=== PATIENT | female | born 1960 | race Caucasian/White ===

== ENCOUNTER 2016-05-06 17:54 | Emergency (ER) | payer SELFPAY | END 2016-05-06 17:56 | disposition left against medical advice (07) | LOC: SED 17:54 | DX: Z53.21 Procedure and treatment not carried out due to patient leaving prior to being seen by health care provider (principal) ==

== ENCOUNTER 2016-05-06 19:26 | Emergency (ER) | payer MEDICARE ==
[~2016-05-06] VITALS: Ht 162.6 cm; Wt 68.2 kg
[2016-05-06 19:28] VITALS: BP 154/89; PULSE 116; RESP 16; O2SAT 96
[2016-05-06 20:08] LABS: BASOPHILS % (AUTO) 0.5 % (0-3); EOSINOPHILS % (AUTO) 2.1 % (0-5); Mean Corpuscular Hemoglobin 28.5 pg (27.0-35.0); Mean Corpuscular Volume 84.7 fL (81-100); NEUTROPHILS % (AUTO) 53.4 % (40-74); Platelet Count 290 bil/L (150-400)
--- NOTE | 2016-05-06 20:24 | ED.REPORT ---
HPI-Psychiatric Illness Date of Service May 06, 2016 ED Provider: Klaudia Voss MD Patient is a 55 year old female who presents to the ED with bizarre behavior of unknown onset, stating that her head and feet are "shrinking and dissolving". Patient states that over the past 3 years she has noticed that her "feet are shrinking", specifically by "5 inches". She states that her head has also shrunk , with her hair and ears in the process of "falling out". The patient states that her "blood isn't running well", which she noticed a year ago. When asked why she decided to seek care today for these complaint she states "I just told you, my head is shrinking and my blood doesn't run". She states that she must be "too old to be on this earth". Patient denies experiencing any pain. The patient denies a psychiatric diagnosis and states that she does not take any medications. She denies a history of hypertension or diabetes mellitus. Patent denies suicidal ideations, homicidal ideations, auditory hallucinations, or visual hallucinations. The presented to the ED around 6pm this evening and left after she started hearing voices. After the initial evaluation, a man in the ED lobby stated that he is with the patient. This individual is a road driver, who states that the patient pays him a large amount of money to drive her around. He knows the patient well, to the extent that he is familiar with her and has been inside her house previously. The patient is from [place] and he often takes her to different hospitals, typically [facility]. Today [facility] had a long wait. They also drove to [facility] but did not go inside. Nursing Notes Stated Complaint: MENTAL HEALTH Chief Complaint: General Complaint Nursing Notes Reviewed: Yes Allergies: Coded Allergies: No Known Allergies (Unverified , 05/06/16) No Active Prescriptions or Reported Meds General Time Seen by MD: 19:36 Chief Complaint Bizarre behavior Hx Obtained From: Patient Arrived By: Walk-in Onset Occurred: Onset unknown Symptom Duration: Since onset Risk-Psychiatric Illness Suicide Risk Stratification RF Statements: Risk factors N/A Past Medical History Past Medical History breast cancer per patient Denies: Diabetes mellitus, Hypertension Past Surgical History mastectomy per patient Social History Other Social History: Good social support, , Local resident Ambulatory Status Independent Unable to Obtain History Past medical history, Past surgical history Unable to Obtain Due to: Patient is obviously psychotic and is unable to provide accurate history Review of Systems Review of Systems Note: + reports blood is moving slowly, head and feet are shrinking Unable to Obtain ROS Mental status (limited by) Constitutional: Denies: Chills, Fever Psychiatric: Denies: Hallucinations, auditory, Hallucinations, visual, Homicidal ideation, Suicidal ideation Physical Exam Initial Vital Signs Vital Signs (First) Date Time Temp Pulse Resp B/P Pulse Ox O2 Delivery O2 Flow Rate FiO2 05/06/16 19:28 36.7 116 16 154/89 96 Room Air Initial VS: Reviewed Head / Eyes: Atraumatic, Normocephalic, PERRL ENT: Mucous membranes moist, Conjunctiva normal, No scleral icterus Neck: Supple, Non-tender, Full range of motion Respiratory: Breath sounds normal, Clear to auscultation, No respiratory distress Cardiovascular: Heart sounds normal Abdomen / GI: Soft, Non-tender Extremities: Vascular intact, Neuro intact, No swelling, No tenderness Skin: Warm, Dry, No cyanosis General/Constitutional: Awake, Alert, No acute distress Neurologic: Speech NL, No motor deficits, No sensory deficits, CN II - XII intact Psychiatric: Not suicidal, Not homicidal Abnormal Mood/Affect: Positive: Pressured speech appears to be responding to internal stimuli obivous delusions Interpretation & Diagnostics Lab Results Interpretation Result Diagram: 05/06/16195405/06/161954 Test 05/06/16 19:55 White Blood Count 8.5th/mm3 (3.8-10.1) Red Blood Count 4.70mil/mm3 (3.90-5.20) Hemoglobin 13.4g/dL (12.0-15.6) Hematocrit 39.8% (35.0-46.0) Mean Corpuscular Volume 84.7fL (81-100) Mean Corpuscular Hemoglobin 28.5pg (27.0-35.0) Mean Corpuscular Hemoglobin Concent 33.7% (32.0-37.0) Red Cell Distribution Width 12.7% (12.3-15.4) Platelet Count 290bil/L (150-400) Neutrophils (%) (Auto) 53.4% (40-74) Lymphocytes (%) (Auto) 35.8% (14-46) Monocytes (%) (Auto) 8.0% (4-12) Eosinophils (%) (Auto) 2.1% (0-5) Basophils (%) (Auto) 0.5% (0-3) Sodium Level 142mEq/L (134-144) Potassium Level 4.3mEq/L (3.5-5.2) Chloride Level 102mEq/L (97-108) Carbon Dioxide Level 26mmol/L (18-29) Blood Urea Nitrogen 16mg/dL (6-24) Creatinine 0.55mg/dL (0.57-1.00) Estimat Glomerular Filtration Rate 164mL/min (>59) Glucose Level 103mg/dL (60-99) Calcium Level 9.5mg/dL (8.5-10.1) Total Bilirubin 0.2mg/dL (0.0-1.2) Aspartate Amino Transf (AST/SGOT) 19U/L (0-50) Alanine Aminotransferase (ALT/SGPT) 23U/L (0-32) Alkaline Phosphatase 91U/L (25-150) Total Protein 7.4g/dL (6.4-8.4) Albumin 4.6g/dL (3.4-5.0) Thyroid Stimulating Hormone (TSH) 3.110uIU/mL (0.450-4.500) Hold Huitron Top Tube Received (Received) Alcohols < 10mg/dL (0-10) CT Head Interpretation IMPRESSION: No acute intracranial disease process. Dictated by: Angie Siddiqui MD, PhD on 05/06/2016 at 20:45 Approved by: Angie Siddiqui MD, PhD on 05/06/2016 at 20:46 Study: Head CT no contrast Interpretation / Wet Read by: Interpret - Radiologist Re-Eval/Medical Decision Med Decision/Clinical Course 55-year-old female who has known psychiatric disorder here stating that her feet are dissolving, her head is shrinking, and her blood stopped flowing. Differential diagnosis includes but is not limited to intracranial abnormality versus electrolyte abnormality versus psychosis versus other lab abnormality. CBC, CMP, and CT head are all unremarkable. Patient was brought in by her regular telecommunications cable jointer, who knows her well, and states that this is her baseline. Patient was evaluated by psych social worker who agrees that patient is not gravely disabled at this time. She is not suicidal or homicidal. This appears to be her baseline. She is well kempt, and has a at home. She is amenable to discharge at this time. She has been given very strict return precautions. Re-Evaluation/Progress : Time of Eval: 21:38 Re-Evaluation/Progress Note: Rechecked the patient, who was informed that her labs and CT scan was normal. Patient understands and agrees with the plan to be discharged home. Discharge instructions and follow-up discussed. All questions were addressed. Return to the ED warnings given. Consultation #1: Consulted With: heating and ventilating worker Call Returned at: 21:00 Note: Spoke with the ED STEWARDESS SUPERVISOR, who has evaluated the patient. She appears to bepleasantly psychotic. She has a personal road driver which she has been paying to drive around. He has been in her house before and knows her well. She was driven around to several hospital tonight but did not go in. She typically goes to [facility], but their wait was too long tonight. Consultation #2: Call Returned at: 21:30 Note: STEWARDESS SUPERVISOR was unable to get ahold of the patient's . Spoke with the road driver extensively, confirmed that he knows her well. She will be discharged to return to her home. Counseled Regarding: Diagnosis, Lab results, Need for follow-up, When/why to return to ED Discharge & Departure Impression: Primary Impression: Psychosis Psychosis type: unspecified psychosis type Qualified Code: F29 - Unspecified psychosis not due to a substance or known physiological condition )( Condition at Discharge: No danger to self, No danger to others, No suicidal ideation, No homicidal ideation Disposition: Home Discharge Condition All VS Reviewed: Yes Condition: Stable Additional Instructions: Your lab work today was normal. It does not appear that you are dissolving and the blood appears to be running through your veins. The CT scan of your head was normal. It does not appear that your head is shrinking. Follow-up with your doctor next week. Return to the Emergency Department if you any other new or concerning symptoms. Your blood pressure was elevated in the Emergency Department today. You should follow-up with your primary care physician about your blood pressure, as you may need to be started on blood pressure medication. Referrals: [facility] Scribe Attestation Portions of this note were transcribed by Glory Gibson. I, Dr. Voss personally performed the history, physical exam and medical decision-making; I reviewed and confirmed the accuracy of the information in the transcribed note. Signed by: Scott Mathur, 05/06/2016 2143 Klaudia Voss MD May 06, 2016 20:24 Glory Gibson May 06, 2016 20:30
--- NOTE | 2016-05-06 20:48 | DRSVH ---
PROCEDURE: CT BRAIN WITHOUT CONTRAST ([id number]) INDICATIONS: new onset psychosis TECHNIQUE: Noncontrast 4.5 mm thick angled axial sections acquired from the foramen magnum to the vertex, with c oronal reformats. COMPARISON: None. FINDINGS: Image quality: Excellent. CSF spaces: Basal cisterns are patent. No extra-axial fluid collections. Ventricles are normal in size and shape. Brain: No midline shift. No intracranial masses or hemorrhage. Valente-white matter interface is norm al. Skull and face: Calvarium and visualized facial bones are intact, without suspicious lesions. Sinuses: Visualized sinuses and mastoids are clear. IMPRESSION: No acute intracranial disease process. Dictated by: Angie Siddiqui MD, PhD on 05/06/2016 at 20:45 Approved by: Angie Siddiqui MD, PhD on 05/06/2016 at 20:46
[2016-05-06 21:53] VITALS: BP 161/91; PULSE 111; RESP 18; O2SAT 96
== END 2016-05-06 21:56 | disposition home or self-care (01) ==
LOC: SED 19:26
DX: F29 Unspecified psychosis not due to a substance or known physiological condition (principal); Z85.3 Personal history of malignant neoplasm of breast
CPT/HCPCS: 36415; 70450; 80053; 82075; 84443; 85025; 99284; G0480

== ENCOUNTER 2016-09-01 11:12 | Emergency (ER) | payer MEDICARE ==
[~2016-09-01] VITALS: Ht 162.6 cm; Wt 59.1 kg
[2016-09-01 11:18] VITALS: BP 150/95; PULSE 104; RESP 14
--- NOTE | 2016-09-01 11:37 | ED.REPORT ---
HPI-Extremity Problem Upper Date of Service Sep 01, 2016 ED Provider: History of Present Illness: Hit left hand on shopping cart on Sunday at [employer]. Left hand dominant. Up to date on tdap. Primary care is [facility] in [place]. Has not use anything on hand Nursing Notes Stated Complaint: SORE LEFT HAND Chief Complaint: Extremity Trauma Nursing Notes Reviewed: Yes Allergies: Coded Allergies: No Known Allergies (Unverified , 05/06/16) No Active Prescriptions or Reported Meds General Time Seen by MD: 11:36 Chief Complaint Hand Injury left Hx Obtained From: Patient Onset Occurred: 2 days ago Symptom Duration: Since onset Caused by: Accidental Location: : Hand left Past Medical History Past Medical History breast cancer per patient Past Surgical History mastectomy per patient Smoking History Former Smoker (reports 20 years ago smoked for 8 month only 09/01/2016) Social History Alcohol Use: Denies alcohol use Drug Use: Denies drug use Other Social History: Good social support, , Local resident Occupation no work or school at this time 09/01/2016 Ambulatory Status Independent Review of Systems Basic Review of Systems Eyes: Vision NL, No discharge : No dysuria, No frequency Psychiatric: Normal thought content Physical Exam Initial Vital Signs Vital Signs (First) Date Time Temp Pulse Resp B/P Pulse Ox O2 Delivery O2 Flow Rate FiO2 09/01/16 11:18 37.0 104 14 150/95 Room Air 09/01/16 12:13 96 Initial VS: Reviewed, Vital signs abnormal General/Constitutional: Well-developed, Well-nourished Head / Eyes: Atraumatic, Normocephalic, PERRL ENT: Mucous membranes moist, Conjunctiva normal, No scleral icterus Neck: Supple, Non-tender, Full range of motion Respiratory: Breath sounds normal, Clear to auscultation, No respiratory distress Cardiovascular: Regular rate & rhythm, Heart sounds normal, Intact distal pulses Abdomen / GI: Soft, Non-tender, No guarding, No rebound, No distention Back: No CVA tenderness Lymphatic: No lymphadenopathy Lower Extremities: Vascular intact, Neuro intact, No swelling, No tenderness Skin: Warm, Dry, No cyanosis Neurologic: Alert, Oriented, Nonfocal Psychiatric: Mood/affect normal, Behavior normal, Normal thought content General/Constitutional: Awake, Alert, No acute distress, Well appearing, Well developed, Well hydrated Respiratory / Chest: Atraumatic, Breath sounds NL, Breath sounds = bilat, No respiratory distress Cardiovascular: Heart rate NL, Regular rhythm, Heart sounds NL Upper Extremity / MS: Atraumatic, Inspection NL, Full range of motion left hand has superficial abrasion 2 cm on dorsum of hand. Has full range of motion. No active bleeding. No sign of infection. Cap refill less than 3 sec. Re-Eval/Medical Decision Med Decision/Clinical Course 55 year old female presents for evualation of superficial laceration on left hand. Happened 2 days ago while shopping at [employer]. Has not used any ointment to the hand. Up to date on tdap. Has full range of motion. No sign of compartment syndrome or hand fracture. Discharge & Departure Impression: Primary Impression: Abrasion hand Disposition: Home Patient Instructions: Abrasion (ED) Additional Instructions: The wound looks good. It does not show any sign of infection. Continue with your hand movement. Use bactroban to the site daily. Cover with a dressing for 3 to 4 days. It is OK to get this wet. Follow with primary care as needed. Use ibuprofen 800 mg up to 3 times a day as needed for any swelling or discomfort. Referrals: OTHER,PHYSICIAN EDSupervising Provider for APC: Pb Conley DO copies to: OTHER,PHYSICIAN Jewels Clemons Sep 01, 2016 11:37
[2016-09-01] MEDS ORDERED: Mupirocin 2% 22 Gm Ointment TOPICAL ONE (11:45)
[2016-09-01 12:13] VITALS: BP 141/92; PULSE 98; RESP 12; O2SAT 96
[2016-09-01] MEDS ORDERED: Mupirocin 2% 22 Gm Ointment TOPICAL SCH ×2 (12:15→20:30)
== END 2016-09-01 12:20 | disposition home or self-care (01) ==
LOC: SED 11:12
DX: S60.512A Abrasion of left hand, initial encounter (principal); W22.8XXA Striking against or struck by other objects, initial encounter; Y93.89 Activity, other specified; Y92.513 Shop (commercial) as the place of occurrence of the external cause; Y99.8 Other external cause status; Z87.891 Personal history of nicotine dependence